=== PATIENT | male | born 1930 | race Caucasian/White ===

== ENCOUNTER 2020-01-01 17:15 | Inpatient (IN) | payer OTHER ==
[~2020-01-01] VITALS: Ht 177.8 cm; Wt 72.0 kg
[~2020-01-01 17:15] MED LIST: ASPI-515 PO/NG; LISI-167 PO
[2020-01-01] MEDS ORDERED: SODIUM CHLORIDE 0.9% 1,000 ML IV SCH (18:58)
[2020-01-01] MEDS ORDERED: ONDANSETRON 2MG/ML, 2ML IVPush PRN (19:00)
[2020-01-01] MEDS ORDERED: HALOPERIDOL 0.5 MG TABLET PO PRN (19:00)
[2020-01-01] MEDS: LORazepam 2 MG/ML, 1ML IVPush SCH (19:00)
[2020-01-01] MEDS ORDERED: LORazepam 2 MG/ML, 1ML IVPush PRN (19:00)
[2020-01-01] MEDS ORDERED: MORPHINE SULFATE 4 MG/ML, 1ML IVPush PRN ×3 (19:00)
[2020-01-01] MEDS: PLEASE ENTER HEIGHT AND WEIGHT MC SCH (19:30)
[2020-01-01] MEDS: SCOPOLAMINE 1MG PATCH TD SCH (20:53)
[2020-01-02] MEDS: LORazepam 2 MG/ML, 1ML IVPush SCH ×5 (01:00→22:38)
[2020-01-02] MEDS: PLEASE ENTER HEIGHT AND WEIGHT MC SCH (01:51)
[2020-01-03] MEDS: LORazepam 2 MG/ML, 1ML IVPush SCH ×4 (04:00→23:49)
[2020-01-04] MEDS: LORazepam 2 MG/ML, 1ML IVPush SCH ×4 (05:26→23:43)
[2020-01-04] MEDS: SCOPOLAMINE 1MG PATCH TD SCH (20:12)
[2020-01-05] MEDS: LORazepam 2 MG/ML, 1ML IVPush SCH ×4 (04:46→17:19)
[2020-01-05] MEDS: morphine SULFATE 100 MG in DEXTROSE 5% 90 ML IV PRN (12:28)
[2020-01-06] MEDS: morphine SULFATE 100 MG in DEXTROSE 5% 90 ML IV PRN ×3 (00:18→21:24)
[2020-01-06] MEDS: LORazepam 2 MG/ML, 1ML IVPush SCH ×5 (01:20→16:57)
[2020-01-06] MEDS: ATROPINE OPHTH SOLN 1%, 5ML BC PRN ×2 (18:21→19:55)
[2020-01-07] MEDS: LORazepam 2 MG/ML, 1ML IVPush SCH (04:02)
[2020-01-07] MEDS: morphine SULFATE 100 MG in DEXTROSE 5% 90 ML IV PRN (06:31)
== END 2020-01-07 11:24 | disposition expired | DRG 951 ==
LOC: 4NW 18:07
PROVIDERS: ADMIT Internal Medicine; ATTEND Internal Medicine
DX: Z51.5 Encounter for palliative care (principal)
CPT/HCPCS: G0378; J2270; J2060